=== PATIENT | female | born 1985 | race Caucasian/White ===

== ENCOUNTER → 2019-04-21 08:18 | Outpatient (CLI) | payer BC, SELFPAY ==
--- NOTE | 2019-04-21 08:19 | CA_ITS ---
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[employer]: Maki Lloyd CRT Ht: 5 ft 4 in Wt: 206lbs BSA: 1.98 BP: 130/79 mmHg Indications: Chest Pain, Palpitations, Fatigue, Peripheral Edema 2D Dimensions LVOT 1.86 cm (M/F) 1.5-2.5 M-Mode Dimensions RVDd 2.16 cm (0.9-2.6) LVDd 4.42 cm (3.5-5.7) LVDs 2.73 cm (3.5-5.7) IVSd 1.12 cm (0.6-1.1) PWd 0.79 cm (0.6-1.1) EF (Teich) 68.60% FS 38.20% EDV (Teich) 88.60 mL ESV (Teich) 27.80 mL LV Diastology E/A Ratio 1.30 Mitral Valve MV A Velocity 73.00 (40-130 cm/s) Left Ventricle Left atrium is normal size, left ventricle is normal size, there is no concentric left ventricular hypertrophy, visually estimated ejection fraction 55% with no regional wall motion abnormality, diastolic parameters are within normal range. Right Ventricle Right atrium and right ventricle are normal size and contractility. Aortic Valve Aortic valve is grossly normal, there is no aortic stenosis aortic insufficiency. Mitral Valve Mitral valve is grossly normal, there is mild mitral regurgitation. Tricuspid Valve Tricuspid valve is grossly normal, there is mild tricuspid regurgitation, calculated right ventricular systolic pressure is within normal range. Pulmonic Valve Pulmonic valve is poorly visualized. Great Vessels Aortic root is normal size. Pericardium No significant pericardial effusion noted. Conclusion 1. Normal left ventricular size, preserved left ventricular systolic function, visually estimated ejection fraction 55% with no regional wall motion abnormality, diastolic parameters are within normal range. 2. Mild mitral and tricuspid regurgitation. Calculated right ventricular systolic pressure is within normal range. 3. No significant pericardial effusion noted. Electronically signed by : Woody Galindo, 04/22/2019 13:31:57
== END ==
PROVIDERS: PCP Nurse Practitioner Family; Visit Provider Internal Medicine Cardiovascular Disease
DX: R00.2 Palpitations (principal); R07.9 Chest pain, unspecified; G47.30 Sleep apnea, unspecified
CPT/HCPCS: 93306; G0399

== ENCOUNTER → 2020-06-27 17:17 | Outpatient (CLI) | payer BC, SELFPAY ==
--- NOTE | 2020-06-27 17:25 | XR_ITS ---
PROCEDURE INFORMATION: Exam: XR Chest Exam date and time: 06/27/2020 5:25 PM Age: 35 years old Clinical indication: Shortness of breath; Patient HX: Patient positive for covid 07/27/2020---. SOA; Additional info: Covid outpatient TECHNIQUE: Imaging protocol: XR of the chest. Views: 1 view. COMPARISON: No relevant prior studies available. FINDINGS: Lungs: Unremarkable. No consolidation. Pleural spaces: Unremarkable. No pleural effusion. No pneumothorax. Heart/Mediastinum: Unremarkable. No cardiomegaly. Bones/joints: Unremarkable. IMPRESSION: No acute findings.
== END ==
PROVIDERS: PCP Nurse Practitioner Family; Visit Provider Nurse Practitioner Family
DX: U07.1 COVID-19 (principal)
CPT/HCPCS: 71045

== ENCOUNTER 2020-08-25 16:20 | Emergency (ER) | payer BC, SELFPAY ==
[2020-08-25 16:20] VITALS: BP 123/80; PULSE 81; RESP 20; TEMP 36.8; O2SAT 99; BMI 34.0
[2020-08-25 16:51] VITALS: BP 123/80; PULSE 81; RESP 20; TEMP 36.8; O2SAT 99
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
== END 2020-08-25 17:15 | disposition home or self-care (01) ==
PROVIDERS: Emergency Provider Nurse Practitioner; PCP Nurse Practitioner Family
DX: S00.83XA Contusion of other part of head, initial encounter (principal); V86.55XA Driver of 3- or 4- wheeled all-terrain vehicle (ATV) injured in nontraffic accident, initial encounter; W22.09XA Striking against other stationary object, initial encounter; Y92.89 Other specified places as the place of occurrence of the external cause
CPT/HCPCS: 99202; G0463

== ENCOUNTER → 2020-08-27 10:43 | Outpatient (CLI) | payer BC, SELFPAY ==
--- NOTE | 2020-08-27 10:47 | XR_ITS ---
PROCEDURE: XR FACIAL BONES MIN 3V CLINICAL INDICATION: UNSPECIFIED HEAD INJURY, SUBSEQUENT ENCOUNTER COMPARISON: No exams were available for comparison FINDINGS: No fracture or dislocation. No lytic or blastic change. There is normal mineralization. No sinus air-fluid level or significant mucosal thickening. Other findings:None. IMPRESSION: Negative facial bones. If symptoms persist, consider CT for more thorough evaluation. Dictated by: Brandin Maciel MD 08/27/2020 12:00 Brandin Maciel MD in [place] 08/27/2020 12:00
== END ==
PROVIDERS: PCP Nurse Practitioner Family; Visit Provider Nurse Practitioner Family
DX: S09.90XD Unspecified injury of head, subsequent encounter (principal)
CPT/HCPCS: 70150

== ENCOUNTER → 2021-03-29 09:54 | Outpatient (CLI) | payer BC, SELFPAY ==
--- NOTE | 2021-03-29 10:00 | MR_ITS ---
FINAL REPORT CLINICAL HISTORY: worsening headaches. migraine headache xyrs. floaters and nausea. symptoms xyrs. FINDINGS: Multi planar MR imaging was obtained through the brain without contrast. The midline structures appear intact. There is no evidence of Chiari malformation. On T2 and flair axial images the brain parenchyma is homogeneous. On diffusion-weighted images there is no evidence of restricted diffusion. The visualized paranasal sinuses demonstrate normal signal voids. The seventh and eighth nerve root complexes are intact. IMPRESSION: Essentially unremarkable nonenhanced brain MRI. Reviewed, Interpreted and Dictated by Timothy Omalley MD Transcribed by Chin Calderon Authenticated by Timothy Omalley MD on 03/29/2021 11:14:31 AM [facility]
--- NOTE | 2021-03-29 10:41 | XR_ITS ---
FINAL REPORT CLINICAL HISTORY: neck pain FINDINGS: CERVICAL SPINE SERIES Seven views demonstrate no fracture. The disc spaces are well preserved. There is no evidence of instability with flexion and extension maneuvers. IMPRESSION: No acute process. Reviewed, Interpreted and Dictated by Timothy Omalley MD Transcribed by Lia Schwartz Authenticated by Timothy Omalley MD on 03/29/2021 01:19:45 PM [facility]
[2021-03-29 11:16] LABS: Basophils # 0.1 K/mm3 (0-0.2); Basophils % 1.1 % (0.1-2.0); Eosinophils # 0.1 K/mm3 (0.0-0.4); Eosinophils % 1.1 % (0.1-12.0); Hematocrit 42.3 % (37.0-47.0); Lymphocytes # 2.3 K/mm3 (0.7-4.5); Lymphocytes % 27.3 % (10-50); Mean Corpuscular HGB Conc 33.2 g/dL (31.8-35.4); Mean Corpuscular Hemoglobin 28.3 pg (27.0-31.2); Mean Corpuscular Volume 85.2 fl (81-99); Mean Platelet Volume 7.6 fl (7.4-10.4); Monocytes # 0.5 K/mm3 (0.1-1.0); Monocytes % 6.3 % (1.7-9.3); Neutrophils # 5.5 K/mm3 (1.8-7.8); Neutrophils % 64.1 % (37.0-80.0); Platelet Count 396 K/mm3 (142-424); Red Blood Count 4.96 M/mm3 (4.20-5.40); Red Cell Distribution Width 14.1 % (11.5-17.5); White Blood Count 8.6 K/mm3 (4.8-10.8)
[2021-03-29 12:56] LABS: Folate 9.31 ng/mL; Vitamin B12 > 1000 pg/mL (239-931)
[2021-03-30 08:18] LABS: Homocyst(e)ine 5.7 umol/L (0.0-14.5)
[2021-04-04 19:08] LABS: Methylmalonic Acid 90 nmol/L (0-378)
== END ==
PROVIDERS: PCP Nurse Practitioner Family; Visit Provider Nurse Practitioner Family
DX: R51.9 Headache, unspecified (principal); G43.009 Migraine without aura, not intractable, without status migrainosus; M54.2 Cervicalgia; R00.2 Palpitations; R29.2 Abnormal reflex; E53.8 Deficiency of other specified B group vitamins; R40.0 Somnolence; G47.8 Other sleep disorders; R06.83 Snoring; Z68.36 Body mass index [BMI] 36.0-36.9, adult
CPT/HCPCS: 36415; 70551; 72052; 82131; 82607; 82746; 83090; 83516; 85025; 86340

== ENCOUNTER → 2021-05-14 21:12 | Outpatient (CLI) | payer BC, SELFPAY | PROVIDERS: PCP Nurse Practitioner Family; Visit Provider Nurse Practitioner Family | DX: G47.33 Obstructive sleep apnea (adult) (pediatric) (principal); R06.83 Snoring | CPT/HCPCS: 95810 ==

== ENCOUNTER 2021-05-31 17:11 | Emergency (ER) | payer BC, SELFPAY ==
[2021-05-31 17:16] VITALS: BP 132/81; PULSE 79; RESP 19; TEMP 36.7; O2SAT 99; BMI 34.0
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
[2021-05-31 18:15] LABS: Urine Pregnancy, HCG Qual. Negative (Negative)
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
[2021-05-31 20:16] VITALS: BP 124/74; PULSE 70; RESP 18; TEMP 36.7; O2SAT 99
== END 2021-05-31 20:18 | disposition home or self-care (01) ==
PROVIDERS: Emergency Provider Emergency Medicine; PCP Nurse Practitioner Family
DX: S06.0X0A Concussion without loss of consciousness, initial encounter (principal); W22.8XXA Striking against or struck by other objects, initial encounter; Y92.89 Other specified places as the place of occurrence of the external cause; K21.9 Gastro-esophageal reflux disease without esophagitis; F41.8 Other specified anxiety disorders
CPT/HCPCS: 70450; 81025; 99284

== ENCOUNTER → 2021-10-26 12:44 | Outpatient (CLI) | payer BC, SELFPAY ==
[2021-10-26 13:27] LABS: Erythrocyte Sedimentation Rate 12 mm/hr (0-20)
[2021-10-26 13:33] LABS: C-Reactive Protein 1.5 mg/L (0-4)
== END ==
PROVIDERS: PCP Nurse Practitioner Family; Visit Provider Nurse Practitioner Family
DX: R51.9 Headache, unspecified (principal)
CPT/HCPCS: 36415; 85651; 86140

== ENCOUNTER 2022-09-09 09:08 | Emergency (ER) | payer BC, SELFPAY ==
[2022-09-09 09:08] VITALS: BP 114/68; PULSE 83; RESP 18; TEMP 36.7; O2SAT 99; BMI 33.5
--- NOTE | 2022-09-09 09:23 | EXP.UTC ---
Discharge Plan Disposition Patient Disposition: Home, Self-Care Prescriptions Prescriptions: New ondansetron 4 mg tablet,disintegrating 4 mg PO Q6H PRN (Reason: nausea and vomiting) 5 Days Qty: 20 0RF No Action propranolol 20 mg tablet 10 mg PO ONCE fluoxetine 20 mg capsule 40 mg PO DAILY omeprazole 40 mg capsule,delayed release(DR/EC) 20 mg PO DAILY multivitamin Tablet 1 tab PO DAILY ferrous sulfate [Feosol] 325 mg (65 mg iron) tablet 325 mg PO DAILY mecobalamin (vitamin B12) 1,000 mcg tablet,disintegrating 1,000 mcg SUBLINGUAL DAILY Rx Instructions: place tablet under tongue and allow to dissolve for at least30 secs before swallowing Qulipta 60 mg tablet 60 mg PO DAILY Qty: 30 11RF Ubrelvy 100 mg tablet 100 mg PO ONCE PRN (Reason: migraine) Qty: 16 11RF Rx Instructions: Take 100 mg at onset of headache. May repeat after 2 hours if symptoms persist. Max dose 200 mg in 24 hours. Referrals Follow up/Referrals: Pablo Morgan MD [Staff Physician] - See instructions (next available appointment for EGD ) Yoli Davalos [Primary Care Provider] - See instructions Activity Restrictions/Add. Instructions Additional Instructions/Restrictions: Please take [id number] Pepcid and Maalox as needed for your symptoms. Return with any intolerance of keeping fluids or medications down. Please follow-up with Dr. Morgan to schedule an outpatient endoscopy and do lifestyle modifications as discussed for your probable diagnosis of GERD Clinical Impressions Clinical Impression: Acute epigastric pain, GERD (gastroesophageal reflux disease) Instructions Patient Instructions: DI for Acute Abdominal Pain Discharge ED Provider: Ya Steven [facility] General Chief complaint: Abdominal Pain Stated complaint: Stomache cramps Mode of Arrival: Ambulatory Source of Information: Patient Limitations: No Limitations Time Seen by Provider: 09/09/22 09:54 HEENT Symptoms (Recalled from RN notes): No Resp Symptoms (Recalled from RN notes): No Skin Symptoms (Recalled from RN notes): No MS Symptoms (Recalled from RN notes): No Functional Status (Recalled from RN notes): wnl History of Present Illness Provider Complaint: Patient complains of upper abdominal pain and nausea since yesterday. Related Data Home Medications Medication Instructions Recorded Confirmed omeprazole 40 mg capsule,delayed 20 mg PO DAILY 03/21/21 04/10/22 release ferrous sulfate 325 mg (65 mg 325 mg PO DAILY 05/02/21 04/10/22 iron) tablet (Feosol) mecobalamin (vitamin B12) 1,000 1,000 mcg sublingual DAILY 05/02/21 04/10/22 mcg disintegrating tablet,sublingual multivitamin 1 tab PO DAILY 05/02/21 04/10/22 propranolol 20 mg tablet 10 mg PO ONCE 01/09/22 04/10/22 fluoxetine 20 mg capsule 40 mg PO DAILY 04/10/22 04/10/22 Previous Rx's Medication Instructions Recorded atogepant 60 mg tablet (Qulipta) 60 mg PO DAILY #30 tabs 01/09/22 ubrogepant 100 mg tablet (Ubrelvy) 100 mg PO ONCE PRN migraine #16 03/05/22 tabs ondansetron 4 mg disintegrating 4 mg PO Q6H PRN nausea and 09/09/22 tablet vomiting 5 days #20 tabs Allergies Allergy/AdvReac Type Severity Reaction Status Date / Time Penicillins Allergy Verified 04/10/22 08:02 Worker's Comp Is this a Worker's Comp case?: No [facility] Disclaimer: The information contained in this section may have been updated after the patient was seen, as this information can be updated by other users. Social History Smoking Status: Never smoker alcohol intake: current substance use type: denies use current occupational status: employed Travel in the last 8 weeks: None household members: spouse and children housing: house ROS Obtained: Yes All systems reviewed & no additional complaints except as documented Constitutional Constitutional: Denies chills, Denies fe
--- NOTE | 2022-09-09 09:54 | HMH.EDGENADL ---
Discharge Plan Disposition Patient Disposition: Home, Self-Care Prescriptions Prescriptions: New ondansetron 4 mg tablet,disintegrating 4 mg PO Q6H PRN (Reason: nausea and vomiting) 5 Days Qty: 20 0RF No Action propranolol 20 mg tablet 10 mg PO ONCE fluoxetine 20 mg capsule 40 mg PO DAILY omeprazole 40 mg capsule,delayed release(DR/EC) 20 mg PO DAILY multivitamin Tablet 1 tab PO DAILY ferrous sulfate [Feosol] 325 mg (65 mg iron) tablet 325 mg PO DAILY mecobalamin (vitamin B12) 1,000 mcg tablet,disintegrating 1,000 mcg SUBLINGUAL DAILY Rx Instructions: place tablet under tongue and allow to dissolve for at least30 secs before swallowing Qulipta 60 mg tablet 60 mg PO DAILY Qty: 30 11RF Ubrelvy 100 mg tablet 100 mg PO ONCE PRN (Reason: migraine) Qty: 16 11RF Rx Instructions: Take 100 mg at onset of headache. May repeat after 2 hours if symptoms persist. Max dose 200 mg in 24 hours. Referrals Follow up/Referrals: Pablo Morgan MD [Staff Physician] - See instructions (next available appointment for EGD ) Yoli Davalos [Primary Care Provider] - See instructions Activity Restrictions/Add. Instructions Additional Instructions/Restrictions: Please take [id number] Pepcid and Maalox as needed for your symptoms. Return with any intolerance of keeping fluids or medications down. Please follow-up with Dr. Morgan to schedule an outpatient endoscopy and do lifestyle modifications as discussed for your probable diagnosis of GERD Clinical Impressions Clinical Impression: Acute epigastric pain, GERD (gastroesophageal reflux disease) Instructions Patient Instructions: DI for Acute Abdominal Pain Discharge ED Provider: Ya Steven General Adult HPI General Chief complaint: Abdominal Pain Stated complaint: Stomache cramps Time Seen by Provider: 09/09/22 09:54 Mode of Arrival: Ambulatory Source of Information: Patient Limitations: No Limitations Description of Symptoms (Recalled from ER Triage Doc. by RN): Patient complains of upper abdominal pain and nausea since yesterday. States that it feels like she is going to vomit or have diarrhea but she can't. History of Present Illness HPI narrative: Patient is a 37-year-old previously healthy female presenting with epigastric discomfort and nausea. This began in the middle of the night she had an urge that she needed to have diarrhea however she has not had any diarrhea and has not vomited but states that she still does not feel well. Pain is located epigastric without any radiation no right upper quadrant or other abdominal quadrant tenderness or pain from historical standpoint. No fevers or chills no chest pain shortness of breath or any other concerns. She went to the urgent treatment clinic and did not want to come the emergency department they sent her here regardless. Related Data Home Medications Medication Instructions Recorded Confirmed omeprazole 40 mg capsule,delayed 20 mg PO DAILY 03/21/21 04/10/22 release ferrous sulfate 325 mg (65 mg 325 mg PO DAILY 05/02/21 04/10/22 iron) tablet (Feosol) mecobalamin (vitamin B12) 1,000 1,000 mcg sublingual DAILY 05/02/21 04/10/22 mcg disintegrating tablet,sublingual multivitamin 1 tab PO DAILY 05/02/21 04/10/22 propranolol 20 mg tablet 10 mg PO ONCE 01/09/22 04/10/22 fluoxetine 20 mg capsule 40 mg PO DAILY 04/10/22 04/10/22 Previous Rx's Medication Instructions Recorded atogepant 60 mg tablet (Qulipta) 60 mg PO DAILY #30 tabs 01/09/22 ubrogepant 100 mg tablet (Ubrelvy) 100 mg PO ONCE PRN migraine #16 03/05/22 tabs ondansetron 4 mg disintegrating 4 mg PO Q6H PRN nausea and 09/09/22 tablet vomiting 5 days #20 tabs Allergies Allergy/AdvReac Type Severity Reaction Status Date / Time Penicillins Allergy Verified 04/10/22 08:02 [facility] Disclaimer: The information contained in this section may have been updated after the
[2022-09-09 10:00] VITALS: BP 131/75; PULSE 90; O2SAT 99
[2022-09-09 10:00] LABS: Microscopic, Urine URINE MICROSCOPIC (MICROSCOPIC)
[2022-09-09 10:11] VITALS: BP 135/63; PULSE 95; RESP 18; TEMP 36.7; O2SAT 98; BMI 33.3
[2022-09-09 10:30] VITALS: BP 112/66; PULSE 81; O2SAT 97
[2022-09-09 10:31] LABS: Urine Pregnancy, HCG Qual. Negative (Negative)
[2022-09-09 11:00] VITALS: BP 119/60; PULSE 80; O2SAT 97
--- NOTE | 2022-09-09 11:13 | PC.NURSE ---
Rounded on patient; pt reports she is ready to go. Dr. Steven notified and is room speaking within patient at this time. Call light within reach
[2022-09-09 11:20] VITALS: BP 119/60; PULSE 74; RESP 18; TEMP 36.7; O2SAT 98
[2022-09-09 12:21] LABS: Appearance,Urine CLEAR (Clear); Bilirubin,Urine Negative (Negative); Blood, Urine TRACE-I (Negative); Color,Urine YELLOW (Yellow); Glucose,Urine (UA) Negative (Negative); Ketones,Urine Negative (Negative); Leukocyte Esterase,Urine TRACE (Negative); Nitrate,Urine Negative (Negative); Protein,Urine Negative (Negative); Urobilinogen,Urine 0.2 EU/dl (0.2)
[2022-09-09 12:45] LABS: Bacteria,Urine Trace /lpf; RBC,Urine Occasional #/hpf (0-3)
== END 2022-09-09 11:20 | disposition home or self-care (01) ==
LOC: UTC 09:11 → ER 09:50
PROVIDERS: Emergency Provider Student in an Organized Health Care Education/Training Program; PCP Nurse Practitioner Family
DX: R10.13 Epigastric pain (principal); K21.9 Gastro-esophageal reflux disease without esophagitis; R11.0 Nausea
CPT/HCPCS: 81001; 81025; 99283; 99284

== ENCOUNTER 2022-09-27 15:46 | Emergency (ER) | payer BC, SELFPAY ==
[2022-09-27 15:47] VITALS: BP 145/91; PULSE 106; RESP 20; TEMP 36.6; O2SAT 99; BMI 33.5
--- NOTE | 2022-09-27 15:52 | XR_ITS ---
PROCEDURE INFORMATION: Exam: XR Right Foot Exam date and time: 09/27/2022 3:56 PM Age: 37 years old Clinical indication: Injury or trauma; Fall; Swelling (edema); Ankle; Right; Additional info: Twisted TECHNIQUE: Imaging protocol: Radiologic exam of the right foot. Views: 3 or more views. COMPARISON: CR XR ANKLE RT MIN 3V 09/27/2022 3:55 PM FINDINGS: Bones/joints: Normal. Soft tissues: Normal. IMPRESSION: No acute findings.
--- NOTE | 2022-09-27 15:52 | XR_ITS ---
PROCEDURE INFORMATION: Exam: XR Right Ankle Exam date and time: 09/27/2022 3:55 PM Age: 37 years old Clinical indication: Injury or trauma; Fall; Swelling (edema); Ankle; Right; Additional info: Twisted TECHNIQUE: Imaging protocol: Radiologic exam of the right ankle. Views: 3 or more views. COMPARISON: No relevant prior studies available. FINDINGS: Bones/joints: Spiral fracture lateral malleolus. No evidence of significant displacement. Widening of the syndesmosis. Focal radiodensity inferior to the medial malleolus. Possible avulsion fracture. Soft tissues: Soft tissue swelling most pronounced superficial to the lateral malleolus. IMPRESSION: 1. Spiral fracture lateral malleolus. No evidence of significant displacement. 2. Findings compatible with syndesmotic injury. 3. Focal radiodensity inferior to the medial malleolus. Possible avulsion fracture.
--- NOTE | 2022-09-27 15:59 | EXP.UTC ---
Discharge Plan Disposition Patient Disposition: Home, Self-Care Condition: Good Prescriptions Prescriptions: New ibuprofen [IBU] 800 mg tablet 800 mg PO Q8HP PRN (Reason: Moderate Pain) Qty: 30 0RF No Action propranolol 20 mg tablet 10 mg PO ONCE fluoxetine 20 mg capsule 40 mg PO DAILY omeprazole 40 mg capsule,delayed release(DR/EC) 20 mg PO DAILY multivitamin Tablet 1 tab PO DAILY ferrous sulfate [Feosol] 325 mg (65 mg iron) tablet 325 mg PO DAILY mecobalamin (vitamin B12) 1,000 mcg tablet,disintegrating 1,000 mcg SUBLINGUAL DAILY Rx Instructions: place tablet under tongue and allow to dissolve for at least30 secs before swallowing Qulipta 60 mg tablet 60 mg PO DAILY Qty: 30 11RF Ubrelvy 100 mg tablet 100 mg PO ONCE PRN (Reason: migraine) Qty: 16 11RF Rx Instructions: Take 100 mg at onset of headache. May repeat after 2 hours if symptoms persist. Max dose 200 mg in 24 hours. ondansetron 4 mg tablet,disintegrating 4 mg PO Q6H PRN (Reason: nausea and vomiting) 5 Days Qty: 20 0RF Referrals Follow up/Referrals: Jorge Luis Tello DO [Staff Physician] - See instructions Yoli Davalos [Primary Care Provider] - See instructions Activity Restrictions/Add. Instructions Additional Instructions/Restrictions: Rest the extremity, apply ice for 15 minutes as tolerated three or four times per day, Elevate the extremity as tolerated while you are resting. Take ibuprofen for pain. I sent in a prescription to your pharmacy. Follow up with Dr. Tello (orthopedics). I put in a referral but you need to call his office and schedule an appointment. His office phone number will be on this paperwork. Please call the office on Thursday morning. Follow up with your regular doctor. GO TO THE ER FOR ANY WORSENING SYMPTOMS Clinical Impressions Clinical Impression: Fracture of distal end of right fibula Instructions Patient Instructions: How to Use Crutches, How to Take Care of Your Splint, Fibula Shaft Fracture Discharge ED Provider: Julian Rodriguez [facility] HPI General Stated complaint: AO RT ankle twisted 09/27 1400 Time Seen by Provider: 09/27/22 15:59 History of Present Illness Provider Complaint: She states that she was walking in her yard when she stepped on uneven ground and twisted her right foot and ankle. Since then she has had right ankle and foot pain. Trying to walk or bear weight Related Data Home Medications Medication Instructions Recorded Confirmed omeprazole 40 mg capsule,delayed 20 mg PO DAILY 03/21/21 04/10/22 release ferrous sulfate 325 mg (65 mg 325 mg PO DAILY 05/02/21 04/10/22 iron) tablet (Feosol) mecobalamin (vitamin B12) 1,000 1,000 mcg sublingual DAILY 05/02/21 04/10/22 mcg disintegrating tablet,sublingual multivitamin 1 tab PO DAILY 05/02/21 04/10/22 propranolol 20 mg tablet 10 mg PO ONCE 01/09/22 04/10/22 fluoxetine 20 mg capsule 40 mg PO DAILY 04/10/22 04/10/22 Previous Rx's Medication Instructions Recorded atogepant 60 mg tablet (Qulipta) 60 mg PO DAILY #30 tabs 01/09/22 ubrogepant 100 mg tablet (Ubrelvy) 100 mg PO ONCE PRN migraine #16 03/05/22 tabs ondansetron 4 mg disintegrating 4 mg PO Q6H PRN nausea and 09/09/22 tablet vomiting 5 days #20 tabs ibuprofen 800 mg tablet (IBU) 800 mg PO Q8HP PRN Moderate Pain 09/27/22 #30 tabs Allergies Allergy/AdvReac Type Severity Reaction Status Date / Time Penicillins Allergy Verified 04/10/22 08:02 [facility] Disclaimer: The information contained in this section may have been updated after the patient was seen, as this information can be updated by other users. Social History Smoking Status: Never smoker alcohol intake: current substance use type: denies use current occupational status: employed Travel in the last 8 weeks: None household members: spouse and children housing: house
[2022-09-27 17:07] VITALS: BP 145/91; PULSE 106; RESP 20; TEMP 36.6; O2SAT 99
== END 2022-09-27 17:08 | disposition home or self-care (01) ==
PROVIDERS: Emergency Provider Nurse Practitioner Family; PCP Nurse Practitioner Family
DX: S82.444A Nondisplaced spiral fracture of shaft of right fibula, initial encounter for closed fracture (principal); X50.1XXA Overexertion from prolonged static or awkward postures, initial encounter
CPT/HCPCS: 73610; 73630; 99212; 99213; 99214; G0463

== ENCOUNTER 2022-12-19 09:00 | Outpatient (RCR) | payer BC, SELFPAY | END 2023-02-03 15:55 | disposition home or self-care (01) | LOC: PT 09:00 | PROVIDERS: PCP Nurse Practitioner Family; Visit Provider Orthopaedic Surgery | DX: S82.831A Other fracture of upper and lower end of right fibula, initial encounter for closed fracture (principal) | CPT/HCPCS: 97010; 97014; 97110; 97112; 97163; 97164; 97530; G0283 ==

== ENCOUNTER 2023-02-27 08:30 | Emergency (ER) | payer BC, SELFPAY ==
[2023-02-27 08:31] VITALS: BP 134/82; PULSE 86; RESP 18; TEMP 36.5; O2SAT 99; BMI 33.3
--- NOTE | 2023-02-27 08:34 | ED_ITS ---
Discharge Plan Disposition Patient Disposition: Home, Self-Care Condition: Good Prescriptions Prescriptions: No Action propranolol 20 mg tablet 10 mg PO ONCE fluoxetine 20 mg capsule 40 mg PO DAILY omeprazole 40 mg capsule,delayed release(DR/EC) 20 mg PO DAILY Qulipta 60 mg tablet 60 mg PO DAILY Qty: 30 11RF Referrals Follow up/Referrals: Yoli Davalos [Primary Care Provider] - See instructions Activity Restrictions/Add. Instructions Additional Instructions/Restrictions: It appears that your pain is likely due to fibroids. Please follow-up with your [facility] doctor. If you continue to be symptomatic you may need a procedure for your fibroids. Please take NSAIDs such as ibuprofen for your discomfort. Please return with any new or worsening symptoms. Clinical Impressions Clinical Impression: Fibroid uterus Qualifiers: Uterine leiomyoma location: unspecified location Qualified Code(s): D25.9 - Leiomyoma of uterus, unspecified Instructions Patient Instructions: Facts About Fibroids, Uterine Fibroids, DI for Uterine Fibroids Discharge ED Provider: Khai Meehan General Adult HPI General Chief complaint: Abdominal Pain Stated complaint: lower abdominal pain Time Seen by Provider: 02/27/23 08:32 History of Present Illness HPI narrative: The patient presents with a chief complaint of severe menstrual cramping and large blood clots during her period. The onset of symptoms began this morning, approximately 1.5 hours prior to the visit. She describes the course of the illness as initially severe with a slight improvement in pain, yet it remains significant. Her pain is suprapubic, and nonradiating. She has not had similar symptoms before. She reports that her symptoms were acute in onset. She has had associated nausea. No fevers, but does report chills. Related Data Home Medications Medication Instructions Recorded Confirmed omeprazole 40 mg capsule,delayed 20 mg PO DAILY 03/21/21 02/27/23 release propranolol 20 mg tablet 10 mg PO ONCE 01/09/22 02/27/23 fluoxetine 20 mg capsule 40 mg PO DAILY 04/10/22 02/27/23 Previous Rx's Medication Instructions Recorded atogepant 60 mg tablet (Qulipta) 60 mg PO DAILY #30 tabs 10/27/22 Allergies Allergy/AdvReac Type Severity Reaction Status Date / Time Penicillins Allergy Verified 10/27/22 13:29 [facility] Disclaimer: The information contained in this section may have been updated after the patient was seen, as this information can be updated by other users. Surgical History Status post right foot surgery Social History Smoking Status: Never smoker alcohol intake: current substance use type: denies use current occupational status: employed Travel in the last 8 weeks: None household members: spouse and children housing: house ROS Obtained: Yes Systems reviewed as appropriate & no additional complaints except as documented As per HPI Physical Exam General General appearance: alert and in no apparent distress Head Head exam: atraumatic and normocephalic Eye Eye exam: Present normal appearance Neck Neck exam: Present normal inspection Chest Chest inspection: Present normal inspection and symmetric chest wall rise Respiratory Respiratory exam: Present normal lung sounds bilaterally; Absent respiratory distress Cardiovascular Cardiovascular exam: Present regular rate and normal rhythm Abdominal Exam Abdominal exam: Present soft Abdominal tenderness: Present suprapubic Neurological Exam Neurological exam: Present alert and oriented X3 Psychiatric Psychiatric exam: Present normal affect and normal mood Skin Skin exam: Present warm and dry Medical Decision Making Medical Records Medical records reviewed: Yes I reviewed the patient's medical records. Skyler Inquiry Pt receiving controlled substance: No Vital Signs: 02/27/23 08:31 02/27/23 08:36 02/27/23 12:26 Temperature 97.7 F 97.7 F Temperature Source Oral Pulse Rate 90 82 Pulse Rate [Right] 86 Respiratory Rate 18 18 Blood Pressure 134/82 116/69 Blood Pressure [Right Arm] 134/82 Blood Pressure Mean 99 Blood Pressure Mean [Right Arm] 99 Blood Pressure Source Automatic Cuff Blood Pressure Source [Right Arm] Automatic Cuff 02 Sat by Pulse Oximetry 99 99 Oxygen Delivery Method Room Air Room Air Room Air Lab Data Lab Results 02/27/23 08:55: WBC 7.2, RBC 4.41, Hgb 12.4, Hct 35.4 L, MCV 80.2 L, MCH 28.1, MCHC 35.0, RDW 14.6, Plt Count 304, MPV 8.0, Neut % (Auto) 71.8, Lymph % (Auto) 21.2, [place] % (Auto) 4.4, Eos % (Auto) 1.8, Baso % (Auto) 0.8, Neut # (Auto) 5.2, Lymph # (Auto) 1.5, [place] # (Auto) 0.3, Eos # (Auto) 0.1, Baso # (Auto) 0.1, Sodium 139, Potassium 4.2, Chloride 106, Carbon Dioxide 25, Anion Gap 12.2, BUN 10, Creatinine 0.70, Estimated Creat Clear 158, Estimated GFR 94, Est GFR ( Amer) 114, Glucose 130 H, Calcium 8.3 L, Total Bilirubin 0.6, AST 46 H, ALT 33, Alkaline Phosphatase 49, Total Protein 6.8, Albumin 3.9, Globulin 2.9, Albumin/Globulin Ratio 1.3, Serum HCG, Qual Negative 02/27/23 08:55 02/27/23 08:55 Orders (Tests/Meds): ED MEDICATIONS Discontinued Medications Generic Name Dose Route Start Last Admin Trade Name Freq PRN Reason Stop Dose Admin Acetaminophen 1,000 mg 02/27/23 08:44 02/27/23 08:55 Acetaminophen 500mg Tab PO 02/27/23 08:45 1,000 mg ONCE ONE Administration Ibuprofen 600 mg 02/27/23 08:44 02/27/23 08:55 Ibuprofen 600 Mg Tablet PO 02/27/23 08:45 600 mg ONCE ONE Administration Ondansetron HCl 4 mg 02/27/23 08:44 02/27/23 08:55 Ondansetron 4mg Odt SL 02/27/23 08:45 4 mg ONCE ONE Administration ORDERS Category Date Time Status US transvaginal Stat Exams 02/27/23 08:44 Completed CBC w/Auto Diff [Complete Blood Count Auto Diff] Stat Lab 02/27/23 08:55 Completed CMP [Comprehensive Metabolic Panel] Stat Lab 02/27/23 08:55 Completed HCG Qualitative, Serum Stat Lab 02/27/23 08:55 Completed Medical Decision Narrative: Patient with history and exam per above presenting for evaluation of suprapubic abdominal pain, vaginal bleeding Diagnoses considered include ectopic , ovarian torsion, ruptured ovarian cyst, anemia, among others ED workup and treatment included: ED MEDICATIONS Discontinued Medications Generic Name Dose Route Start Last Admin Trade Name Freq PRN Reason Stop Dose Admin Acetaminophen 1,000 mg 02/27/23 08:44 02/27/23 08:55 Acetaminophen 500mg Tab PO 02/27/23 08:45 1,000 mg ONCE ONE Administration Ibuprofen 600 mg 02/27/23 08:44 02/27/23 08:55 Ibuprofen 600 Mg Tablet PO 02/27/23 08:45 600 mg ONCE ONE Administration Ondansetron HCl 4 mg 02/27/23 08:44 02/27/23 08:55 Ondansetron 4mg Odt SL 02/27/23 08:45 4 mg ONCE ONE Administration ORDERS Category Date Time Status US transvaginal Stat Exams 02/27/23 08:44 Completed CBC w/Auto Diff [Complete Blood Count Auto Diff] Stat Lab 02/27/23 08:55 Completed CMP [Comprehensive Metabolic Panel] Stat Lab 02/27/23 08:55 Completed HCG Qualitative, Serum Stat Lab 02/27/23 08:55 Completed Labs were independently interpreted by me, significant for test negative, hemoglobin within normal limits Imaging was independently visualized and interpreted by me, significant for findings consistent with uterine fibroid, no evidence of ovarian torsion, Symptoms at this time are thought to be most consistent with symptomatic uterine fibroid I discussed my clinical impression with patient and answered all questions. At this time, given reassuring workup and exam, I discussed that I have a low index of suspicion for any acute pathology necessitating inpatient management. Specific return precautions were given, with understanding and agreement. Patient will follow up with primary care provider as needed. Additionally will follow-up with [employer] Critical Care Critical Care Time Critical Care Time: No
[2023-02-27 08:36] VITALS: BP 134/82; PULSE 90; O2SAT 99
--- NOTE | 2023-02-27 08:39 | PC.NURSE ---
DR PEGUERO AT BEDSIDE
--- NOTE | 2023-02-27 08:44 | US_ITS ---
FINAL REPORT CLINICAL HISTORY: acute abdominal pain, N/V, eval for torsion FINDINGS: Transvaginal sonographic images of the pelvis were obtained. The uterus measures 8.9 x 6.2 x 7.0 cm. The endometrium measures 5 mm. There is a hypoechoic focus in the fundus of the uterus measuring 5.3 cm, probably related to a fundal fibroid. The right ovary measures 2.6 x 3.8 x 3.1 cm. The left ovary measures 3.7 x 1.9 x 2.1 cm. Small follicles are seen to both ovaries. Proper flow is identified bilaterally. IMPRESSION: Hypoechoic focus in the fundal of the uterus, probably related to a fundal fibroid. Reviewed, Interpreted and Dictated by Timothy Omalley MD Transcribed by Lia Schwartz Authenticated and . [facility]
--- OUTSIDE RECORDS SUMMARY | 2023-02-27 08:44 | XMS_ITS | Clinical Summary ---
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 Vitale is doing well. Her pain has improved. She still taking the aspirin for DVT prophylaxis. She is still nonweightbearing. We removed the splint today and will transition her to a boot. I encouraged her to come out of the boot to work on active range of motion of the ankle. I will see her back in 4 weeks. If x-rays look good at that time we will start weight-bearing and start physical therapy. - Last Documented On 10/17/2022 3:58PM ; [facility] Future Appointments Date Time Location Provi emiliano Injection Follow Up Visit 05/10/2027 10:30AM [facility] Rojas Pineda MD Assessments Includes: Assessments from this encounter Findings 2 weeks status post ORIF right lateral malleolus for displaced right bimalleolar equivalent ankle fracture - Last Documented On 10/17/2022 3:58PM ; [facility] Medical Equipment - Implanted Devices Includes: Current Devices No Medical Equipment Recorded Medications Includes: Medications discussed during this encounter and other current Medications Current Medications (continue as prescribed) Qulipta 60 MG Oral Tablet 05/06/2022 Provider: Diagnosis: FLUoxetine HCl 40 MG Oral Capsule 04/24/2022 Provide r: Yoli Davalos APRN Diagnosis: Omeprazole 20 MG Oral Capsule Delayed Release 04/24/19 Provider: Yoli Davalos APRN Diagnosis: Ubrelvy 100 MG Oral Tablet 04/10/2022 Provider: Diagnosis: Propranolol HCl 10 MG Oral Tablet 03/05/2022 Provide r: Yoli Davalos APRN Diagnosis: Vitamin B12 Unknown Oral Tablet 08/06/2017 Provider: Diagnosis: Ibuprofen 200MG Oral Capsule 05/19/2017 Provider: Diagnosis: Aleve 220MG Oral Tablet 05/19/2017 Provider: Diagnosis: Past Medications on file Aspirin EC Low Dose 81 MG Or al Tablet Delayed Release 09/30/2022 - 10/30/2022 Provider: Robert Barreto Diagnosis: 1 tablet po twice a day x 30 days AFTER surgery Medications Administered Includes: Administered Medications from this encounter No Administered Medications Recorded Results Includes: Results discussed during this encounter No Results Recorded For Specified Dates History of Present Illness Includes: History of Present Illness from this encounter FRANTZ Vitale is a 37 year old female. - Allergy list reviewed - Medication list reviewed Patent is here to follow up a right ankle ORIF from 10/01/2022. She reports minimal pain. The swelling has decreased. She denies any calf pain or tenderness. She has been in a splint since surgery. She is using a knee scooter. She has a puppy with her today. No longer taking pain medication. She is taking aspirin twice daily for DVT prophylaxis. Social History Description Last Updated Smoking status : Never smoker 10/15/2022 Procedures and Surgical History Includes: Procedures from this encounter Procedures Code Diagnosis Performing Provider Service Location Service Date X-Ray Ankle - 3 Views (Right) [address]22[address] Displ bimalleol fx r low leg, subs for clos fx w routn heal [facility] EP 10/15/2022 Surgical History Last Updated History of total right hip replacement 0 07/13/2017. Dr. 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 No fever, no chills, and no recent weight change. No night sweats. Head: No head symptoms. Neck: No neck pain, no neck stiffness, and no lump or swelling in the neck. Eyes: No eye symptoms. Otolaryngeal: No otolaryngeal symptoms. Cardiovascular: No cardiovascular symptoms. Pulmonary: No pulmonary symptoms. Gastrointestinal: No gastrointestinal symptoms. Genitourinary: No genitourinary symptoms. Endocrine: No endocrine symptoms. Hematologic: No easy bleeding and no tendency for easy bruising. Musculoskeletal: Musculoskeletal symptoms. Neurological: No neurological symptoms. Psychological: No psychological symptoms. Skin: No skin symptoms. Mental Status Includes: Mental Status from this encounter No Mental Status Recorded Functional Status Includes: Functional Status from this encounter No Functional Status Recorded Physical Exam Includes: Physical Exam from this encounter Allergies Includes: Active Allergies Substance Type Reaction Onset Date Resolved Date Statu s Penicillin G Benzathine Allergy Skin Devan hes / Eruption of skin, Hives / Urticaria 05/19/2017 Active Encounters Encounter Provider Location Date Check-In Time Check-Out Time Diagnosis Surgical Follow Up Visit [facility] 10/16/19 23 1:06PM 2:02PM Insurance Includes: Active Insurance Policies Plan Name Member ID Group # Subscriber Relationship Effect lori Dates 1 - Monette Blue Pref/access [id number] Antonella Vitale Self Clinical Notes Includes: Clinical Notes from this encounter * Progress note Date Encounter Last Documented by 10/15/2022 Surgical Follow Up Visit Last do cumented on 10/17/2022; 3:58 PM, Robert Vera MD; [facility] Chief Complaint Follow up right ankle History of Present Illness Antonella Vitale is a 37 year old female. - Allergy list reviewed - Medication list reviewed Patent is here to follow up a right ankle ORIF from 10/01/2022. She reports minimal pain. The swelling has decreased. She denies any calf pain or tenderness. She has been in a splint since surgery. She is using a knee scooter. She has a puppy with her today. No longer taking pain medication. She is taking aspirin twice daily for DVT prophylaxis. User Defined 8 05/09 Current Medication - Aleve 220MG Oral Tablet 220 MG as needed 0 days, 0 refills - Aspirin EC Low Dose 81 MG Oral Tablet Delayed Release Tablet, enteric coated 1 tablet po twice a day x 30 days AFTER surgery, 30 days, 0 refills - FLUoxetine HCl 40 MG Oral Capsule Capsule, conventional 90 days, 0 refills - Ibuprofen 200MG Oral Capsule 200 MG Capsule, conventional as needed 0 days, 0 refills - Omeprazole 20 MG Oral Capsule Delayed Release Capsule, delayed-release 90 days, 0 refills - Propranolol HCl 10 MG Oral Tablet 90 days, 0 refills - Qulipta 60 MG Oral Tablet 30 days, 0 refills - Ubrelvy 100 MG Oral Tablet 30 days, 0 refills - Vitamin B12 Unknown Oral Tablet Unknown 1 tablet po once a day 0 days, 0 refills Past Medical/Surgical History Other: Past medical history reviewed Surgical history reviewed Reported: Surgical / Procedural: Surgical / procedural history endometriosis 2009. Family history reviewed. Diagnoses: Migraine headache. Anxiety disorder due to general medical condition. Methicillin resistant staphylococcus aureus infection Surgical: - Total right hip replacement 07/13/2017. Dr. Pineda Social History Tobacco use: Former smoker. Smoking status: Never smoker. Alcohol: Alcohol use: 2 drinks or less per day. Drug Use: Never used drugs. Education: Completed associate's degree. 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 Motor: Preference for right-handedness. Allergies - Penicillin G Benzathine Reaction: , Hives / Urticaria No Metal Allergy. Family History Diabetes mellitus Dad and Mom Arthritis Dad, Maternal grandmother, paternal aunt all have hip replacements Review Of Systems Systemic: Not feeling tired. No fever, no chills, and no recent weight change. No night sweats. Head: No head symptoms. Neck: No neck pain, no neck stiffness, and no lump or swelling in the neck. Eyes: No eye symptoms. Otolaryngeal: No otolaryngeal symptoms. Cardiovascular: No cardiovascular symptoms. Pulmonary: No pulmonary symptoms. Gastrointestinal: No gastrointestinal symptoms. Genitourinary: No genitourinary symptoms. Endocrine: No endocrine symptoms. Hematologic: No easy bleeding and no tendency for easy bruising. Musculoskeletal: Musculoskeletal symptoms. Neurological: No neurological symptoms. Psychological: No psychological symptoms. Skin: No skin symptoms. Physical Findings General Appearance: Patient is awake, alert, and oriented and appears in no acute distress. Head: Atraumatic, normocephalic. Eyes: EOMs are intact. Lungs: Patient is in no acute respiratory distress. Neurologic: No acute neurological deficits or lateralizing findings. Peripheral Pulses: No sign of acute vascular compromise. Skin: Intact without evidence of wounds, lesions, ulcerations or abrasions. Musculoskeletal: On exam of the right ankle the splint has been removed. Incision is clean dry and intact to the right lateral distal fibula. No draining or erythema. Appropriately tender to palpation. Active ankle range of motion is from neutral to 30- of plantar flexion. She does have some tingling in the dorsal foot. Otherwise sensation intact to light touch. Foot is warm well perfused. Calf is soft, supple and nontender. User Defined 2 X-rays of the right ankle 3 or more views were performed [id number]. AP, mortise and lateral x-rays of the right ankle show plate and screw fixation of the right distal fibula with lag screw and neutralization plate. Hardware intact without failure. There is anatomic reduction of the fracture site on the mortise. Assessment 2 weeks status post ORIF right lateral malleolus for displaced right bimalleolar equivalent ankle fracture Plan Mrs. Vitale is doing well. Her pain has improved. She still taking the aspirin for DVT prophylaxis. She is still nonweightbearing. We removed the splint today and will transition her to a boot. I encouraged her to come out of the boot to work on active range of motion of the ankle. I will see her back in 4 weeks. If x-rays look good at that time we will start weight-bearing and start physical therapy. Practice Management Use of tobacco assessment performed. Counseling/Education - Body mass index - Patient screened for future fall risk - Patient screened for future fall risk: documentation of no falls in past year - Encouragement to exercise Bottom of Document [facility]/sw
--- OUTSIDE RECORDS SUMMARY | 2023-02-27 08:44 | XMS_ITS | Clinical Summary ---
Author Name Unknown Address [address] [facility] [address] [place] [address] Phone Organization [facility] Address [address] [facility] [facility] [address] [place] [address] Phone Care Team Providers Care Log Data Technician Name Role Phone Yoli Davalos APRN Primary Care Provider [phone] Robert Vera MD Unavailable [phone] Reason for Visit and Chief Complaint Standard Follow Up Visit Problems Includes: Problems addressed during this encounter and other active Problems All Visits Onset Date Resolved Date Provider Condition S tatus Unilateral primary osteoarthritis, right hip 05/21/2017 Rojas Pineda MD Active Last Documented On 05/21/2017 2:57PM ; [facility] Note: Unchanged Plan of Treatment She is now 6 weeks out from surgery. She is doing well with minimal pain. She has still been nonweightbearing. X-rays show good alignment and healing of the fracture. We can begin weight-bearing at this time. I want her to start from the boot and wean out of the boot over the next 2-3 weeks. We will set up physical therapy to work on gait, range of motion strengthening. I will see her back in 6 weeks with repeat right ankle x-rays. - Last Documented On 11/15/2022 7:49AM ; [facility] Future Appointments Date Time Location Provi emiliano Injection Follow Up Visit 05/10/2027 10:30AM [facility] Rojas Pineda MD Assessments Includes: Assessments from this encounter Findings 6 weeks status post ORIF right lateral malleolus for displaced right bimalleolar equivalent ankle fracture. - Last Documented On 11/15/2022 7:49AM ; [facility] Medical Equipment - Implanted Devices Includes: [...] Aleve 220MG Oral Tablet 05/19/2017 Provider: Diagnosis: Medications Administered Includes: Administered Medications from this encounter No Administered Medications Recorded Vital Signs Includes: Vital Signs from this encounter Vital Name 11/12/2022 11:26A Height (in) 64 Weight (lb) 305 Body Mass Index 52.4 Body Surface Area 2.3 Last Documented On: 11/12/2022 11:26AM ; [facility] Results Includes: Results discussed during this encounter No Results Recorded For Specified Dates History of Present Illness Includes: History of Present Illness from this encounter FRANTZ Vitale is a 37 year old female. - Allergy list reviewed - Medication list reviewed Patent is here to followup on a right ankle ORIF from 10/01/2022. She is 6 weeks out and has been nonweightbearing. She reports minimal pain. The swelling has decreased. She denies any calf pain or tenderness. She is using a knee scooter to get around. She has completed her aspirin for DVT prophylaxis. She is taking no pain medication. Social History No Social History Recorded - Smoking Status Unknown Procedures and Surgical History Includes: Procedures from this encounter Procedures Code Diagnosis Performing Provider Service Location Service Date X-Ray Ankle - 3 Views (Right) [address] Displ bimalleol fx r low leg, subs for clos fx w routn heal [facility] EP 11/12/2022 Medical History Includes: Medical History addressed during this encounter No Medical History Recorded Family History Includes: Family History addressed during this encounter No Family History Recorded Review of Systems Includes: Review of Systems from this encounter No Review of Systems Recorded Mental Status Includes: Mental Status from this [...] Location Date Check-In Time Check-Out Time Diagnosis Standard Follow Up Visit Robert [facility] EP 11/13/19 23 11:16AM 11:56AM Insurance Includes: Active Insurance Policies Plan Name Member ID Group # Subscriber Relationship Effect lori Dates 1 - [place] Pref/access [id number] Antonella Vitale Self Clinical Notes Includes: Clinical Notes from this encounter * Progress note Date Encounter Last Documented by 11/12/2022 Standard Follow Up Visit Last do cumented on 11/15/2022; 7:49 AM, Robert Vera MD; [facility] Chief Complaint Followup right ankle History of Present Illness Antonella Vitale is a 37 year old female. - Allergy list reviewed - Medication list reviewed Patent is here to followup on a right ankle ORIF from 10/01/2022. She is 6 weeks out and has been nonweightbearing. She reports minimal pain. The swelling has decreased. She denies any calf pain or tenderness. She is using a knee scooter to get around. She has completed her aspirin for DVT prophylaxis. She is taking no pain medication. User Defined 8 0/10 Physical Findings - Vitals taken 11/12/2022 11:26 am Height 64 in Weight 305 lbs Body Mass Index 52.4 kg/m2 Body Surface Area 2.3 m2 General Appearance: Patient is awake, alert, and oriented and appears in no acute distress. Head: Atraumatic, normocephalic. Eyes: EOMs are intact. Lungs: Patient is in no acute respiratory distress. Neurologic: No acute neurological deficits or lateralizing findings. Peripheral Pulses: No sign of acute vascular compromise. Skin: Intact without evidence of wounds, lesions, ulcerations or abrasions. Musculoskeletal: On exam of the right ankle the incision on the right lateral distal fibula is well healed. No draining or erythema. No tenderness to palpation. Active ankle range of motion is from 5- dorsiflexion to 30- of plantar flexion. She does have some tingling in the dorsal foot. Otherwise sensation intact to light touch. Foot is warm well perfused. Calf is soft, supple and nontender. User Defined 2 X-rays of the right ankle 3 or more views were performed [id number]. AP, mortise and lateral x-rays of the right ankle show plate and screw fixation of the right distal fibula with lag screw and neutralization plate. Hardware intact without failure. There is anatomic reduction of the fracture site on the mortise. Assessment 6 weeks status post ORIF right lateral malleolus for displaced right bimalleolar equivalent ankle fracture. Plan She is now 6 weeks out from surgery. She is doing well with minimal pain. She has still been nonweightbearing. X-rays show good alignment and healing of the fracture. We can begin weight-bearing at this time. I want her to start from the boot and wean out of the boot over the next 2-3 weeks. We will set up physical therapy to work on gait, range of motion strengthening. I will see her back in 6 weeks with repeat right ankle x-rays. Bottom of Document [facility]/t
--- OUTSIDE RECORDS SUMMARY | 2023-02-27 08:44 | XMS_ITS | Clinical Summary ---
Author Name Unknown Address [address] [facility] [address] [place] [address] Phone Organization [facility] Address [address] [facility] [address] [place] [address] Phone Care Team Providers Care Top Distribution Executive Name Role Phone Yoli Davalos APRN Primary Care Provider Jody AVALOS, Robert Palacio Unavailable Unavailable Reason for Visit and Chief Complaint Surgical Appointment Problems Includes: Problems addressed during this encounter and other active Problems All Visits Onset Date Resolved Date Provider Condition S tatus Unilateral primary osteoarthritis, right hip 05/21/2017 Rojas Pineda MD Active Last Documented On 05/21/2017 2:57PM ; [facility] Note: Unchanged Plan of Treatment Future Appointments Date Time Location Provi emiliano Injection Follow Up Visit 05/10/2027 10:30AM [facility] Rojas Pineda MD Assessments Includes: Assessments from this encounter No Assessments Recorded Medical Equipment - Implanted Devices Includes: Current [...] Oral Tablet 03/05/2022 Provide r: Yoli Davalos SOCIAL SERVICES ASSISTANT Diagnosis: Vitamin B12 Unknown Oral Tablet 08/06/2017 Provider: Diagnosis: Ibuprofen 200MG Oral Capsule 05/19/2017 Provider: Diagnosis: Aleve 220MG Oral Tablet 05/19/2017 Provider: Diagnosis: Medications Administered Includes: Administered Medications from this encounter No Administered Medications Recorded Results Includes: Results discussed during this encounter No Results Recorded For Specified Dates History of Present Illness Includes: History of Present Illness from this encounter No History of Present Illness Recorded Social History No Social History Recorded - Smoking Status Unknown Procedures and Surgical History Includes: Procedures from this encounter Procedures Code Diagnosis Performing Provider Service Location Service Date Op Tx Distal Fib Fx;w/wo Fix (Right) 06807 Displaced bimalleolar fracture of right lower leg, init Robert Mitchell/[facility] EP 10/02/2022 Medical History Includes: Medical History addressed during [...] Exam Includes: Physical Exam from this encounter No Physical Exam Recorded Allergies Includes: Active Allergies Substance Type Reaction Onset Date Resolved Date Statu s Penicillin G Benzathine Allergy Skin Devan hes / Eruption of skin, Hives / Urticaria 05/19/2017 Active Encounters Encounter Provider Location Date Check-In Time Check-Out Time Diagnosis Surgical Appointment Robert Mitchell/kathy torres EP 10/03/19 23 9:30AM 11:59PM Insurance Includes: Active Insurance Policies Plan Name Member ID Group # Subscriber Relationship Effect lori Dates 1 - [place] Pref/access [id number] Antonella Winifred Self Clinical Notes Includes: Clinical Notes from this encounter No Clinical Notes Recorded
--- OUTSIDE RECORDS SUMMARY | 2023-02-27 08:44 | XMS_ITS | Clinical Summary ---
Author Name Unknown Address [address] [facility] [facility] [address] [place] [address] Phone Organization [facility] Address [address] [facility] [address] [place] [address] Phone Care Team Providers Care House Designer Name Role Phone Yoli Davalos APRN Primary Care Provider [phone] Robert eVra MD Unavailable [phone] Reason for Visit and Chief Complaint Phone Conversation Problems Includes: Problems addressed during this encounter and other active Problems All Visits Onset Date Resolved Date Provider Condition S tatus Unilateral primary osteoarthritis, right hip 05/21/2017 Rojas Pineda MD Active Last Documented On 05/21/2017 2:57PM ; [facility] Note: Unchanged Plan of Treatment Future Appointments Date Time Location Provi emiliano Injection Follow Up Visit 05/10/2027 10:30AM [facility] Rojas Pineda MD Assessments Includes: [...] History of Present Illness from this encounter HPI I spoke to the patient this morning. She is postop day 1 from right ankle ORIF. She had a bimalleolar equivalent ankle fracture. She does have a splint in place. She states that it feels that the splint is taking and directly over the incision. I did place the splint on myself and is well padded. I think her pain is not adequately controlled. I will allow her to take 2 of her pain pills for the next several doses. She continued to elevate and ice the ankle. She can take ibuprofen in between her Percocet doses. She is taking aspirin 81 mg b.i.d. for DVT prophylaxis. Follow- up in 2 weeks Social History No Social History Recorded - Smoking Status Unknown Medical History Includes: Medical History addressed during [...] Location Date Check-In Time Check-Out Time Diagnosis Phone Conversation Robert Vera MD 3 1:34PM 11:59PM Insurance Includes: Active Insurance Policies Plan Name Member ID Group # Subscriber Relationship Effect lori Dates 1 - [place] Pref/access [id number] Antonella Winifred Anaya Clinical Notes Includes: Clinical Notes from this encounter * Progress note Date Encounter Last Documented by 10/03/2022 Phone Conversation Last document ed on 10/03/2022; 1:36 PM, Robert Vera MD; [facility] History of Present Illness I spoke to the patient this morning. She is postop day 1 from right ankle ORIF. She had a bimalleolar equivalent ankle fracture. She does have a splint in place. She states that it feels that the splint is taking and directly over the incision. I did place the splint on myself and is well padded. I think her pain is not adequately controlled. I will allow her to take 2 of her pain pills for the next several doses. She continued to elevate and ice the ankle. She can take ibuprofen in between her Percocet doses. She is taking aspirin 81 mg b.i.d. for DVT prophylaxis. Follow- up in 2 weeks
--- OUTSIDE RECORDS SUMMARY | 2023-02-27 08:44 | XMS_ITS ---
Author Name Unknown Address [address] [place] [address] Phone Organization [facility] Address [address] [place] [address] Phone Care Team Providers Care Product Test Engineer Name Role Phone Eduard Cheek APRN Primary Care Provider [phone] Robert Vera MD Unavailable [phone] Problems Includes: Active, inactive, and resolved Problems All Visits Onset Date Resolved Date Provider Condition S tatus Unilateral primary osteoarthritis, right hip 05/21/2017 Rojas Pineda MD Active Last Documented On 05/21/2017 2:57PM ; [facility] Note: Unchanged Plan of Treatment Future Appointments Date Time Location Provi emiliano Injection Follow Up Visit 05/10/2027 10:30AM [facility] Rojas Pineda MD Education and Decision Aids were provided during visit for: Discussed maintaining health y weight Last Documented On 3 10:44AM ; [facility] Pre-op reinforcement of the risks and benefits of the procedure , rehabilitation, and postoperative course were discussed Last Documented On 8 4:20PM ; [facility] Assessments Includes: Assessments for all patient encounters No Assessments Recorded Instructions Includes: Instructions for all patient encounters Education and Decision Aids were provided during visit for: Discussed maintaining health y weight Last Documented On 3 10:44AM ; [facility] Pre-op reinforcement of the risks and benefits of the procedure , rehabilitation, and postoperative course were discussed Last Documented On 8 4:20PM ; [facility] Medical Equipment - Implanted Devices Includes: Current and historical Devices No Medical Equipment Recorded Medications Includes: Current and historical Medications Current Medications (continue as prescribed) Qulipta 60 MG Oral Tablet 05/06/2022 Provider: Diagnosis: FLUoxetine HCl 40 MG Oral Capsule 04/24/2022 Provide r: Eduard Cheek APRN Diagnosis: Omeprazole 20 MG Oral Capsule Delayed Release 04/24/19 Provider: Eduard Cheek APRN Diagnosis: Ubrelvy 100 MG Oral Tablet 04/10/2022 Provider: Diagnosis: Propranolol HCl 10 MG Oral Tablet 03/05/2022 Provide r: Eduard Cheek APRN Diagnosis: Vitamin B12 Unknown Oral Tablet 08/06/2017 Provider: Diagnosis: Ibuprofen 200MG Oral Capsule 05/19/2017 Provider: Diagnosis: Aleve 220MG Oral Tablet 05/19/2017 Provider: Diagnosis: Past Medications on file Aspirin EC Low Dose 81 MG Or al Tablet Delayed Release 09/30/2022 - 10/30/2022 Provider: Robert Barreto Diagnosis: 1 tablet po twice a day x 30 days AFTER surgery FLUoxetine HCl 40MG Oral Capsule 07/29/2017 - 05/10/19 Provider: Diagnosis: Paxil 20MG Oral Tablet 05/19/2017 - 08/06/2017 Provide r: Diagnosis: take 1/2 per day Medications Administered Includes: Administered Medications in patient's chart No Administered Medications Recorded Vital Signs Includes: Vital Signs from 02/27/2022 through 02/27/2023 Vital Name 11/12/2022 11:26A 09/29/2022 11:30A 05/09 10:43A Height (in) 64 64 64 Weight (lb) 305 195 218.4 Body Mass Index 52.4 33.5 37.5 Body Surface Area 2.3 1.9 2 Last Documented On: 11/12/2022 11:26AM ; [facility] 09/29/2022 11:30AM ; [facility] 05/09/2022 10:43AM ; [facility] Results Includes: Results from 02/27/2022 through 02/27/2023 No Results Recorded For Specified Dates History of Present Illness History of Present Illness not supported for this document type No History of Present Illness Recorded Social History Description Last Updated Smoking status : Former smoker Procedures and Surgical History Includes: Procedures from 02/27/2022 through 02/27/2023 Procedures Code Diagnosis Performing Provider Service Location Service Date X-Ray Ankle - 3 Views (Right) 11304 Displ bimalleol fx r low leg, subs for clos fx w rout[facility] [place] Surgical History Last Updated History of total right hip replacement 0 07/13/2017. Dr. 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 09/29/2022 Family History Includes: Family History in patient's chart Description Last Updated Family history of arthritis Dad, Maternal grandmother, paternal aunt all have hip replacements 08/11/2017 Review of Systems Review of Systems not supported for this document type No Review of Systems Recorded Mental Status No Mental Status Recorded Functional Status No Functional Status Recorded Physical Exam Physical Exam not supported for this document type No Physical Exam Recorded Allergies Includes: Active, inactive, and resolved Allergies Substance Type Reaction Onset Date Resolved Date Statu s Penicillin G Benzathine Allergy Skin Devan hes / Eruption of skin, Hives / Urticaria 05/19/2017 Active Encounters Includes: Encounters from 02/27/2022 through 02/27/2023 Encounter Provider Location Date Check-In Time Check-Out Time Diagnosis Standard Follow Up Visit [facility] [place] 23 10:44AM 11:51AM [facility] 11:16AM 11:56AM [facility] 1:06PM 2:02PM Phone Conversation Robert Vera MD 10/04/19 23 09/29/2022 1:34PM 09/29/2022 11:59PM Surgical Appointment [facility] 10/03/1909/29/2022 9:30AM 09/29/2022 11:59PM Medication Robert Vera MD 10/01/1909/29/2022 8:02AM 09/29/2022 11:59PM Work In Established Pt [facility] [place] 11:05AM 12:51PM Estab Pt New Problem Ro[facility] 05/10/19 10:39AM 10:53AM Insurance Includes: Active Insurance Policies Plan Name Member ID Group # Subscriber Relationship Effect lori Dates 1 - [employer] Pref/access [id number] Antonella Vitale Self Clinical Notes Includes: Signed Clinical Notes starting from 02/10/2022 * Progress note Date Encounter Last Documented by 12/24/2022 Standard Follow Up Visit Last do cumented on 12/26/2022; 7:44 AM, Robert Vera MD; [facility] Chief Complaint Right ankle followup History of Present Illness Antonella Vitale is a 37 year old female. - Allergy list reviewed - Medication list reviewed Right ankle followup visit. She normally does not have any pain. Sometimes she has pain on the medial side of the ankle when she steps wrong. She feels she is unable to apply barely any weight on it for a few days. She is still doing physical therapy. The ankle swells at the end of the day. No numbness or tingling. User Defined 8 0 out of 10 Current Medication - Aleve 220MG Oral Tablet 220 MG as needed 0 days, 0 refills - FLUoxetine HCl 40 MG Oral Capsule 90 days, 0 refills - Ibuprofen 200MG Oral Capsule 200 MG as needed 0 days, 0 refills - Omeprazole 20 MG Oral Capsule Delayed Release 90 days, 0 refills - Propranolol HCl [...] 07/13/2017. Dr. Pineda Social History Tobacco use: Tobacco non-user. Smoking status: Former smoker. Alcohol: Alcohol use: 2 drinks or less per day. Drug Use: Never used drugs. Education: Completed associate's degree. 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 Motor: Preference for right-handedness. Allergies - Penicillin [...] bleeding and no tendency for easy bruising. Neurological: No neurological symptoms. Psychological: No psychological [...] abrasions. Musculoskeletal: On exam of the right ankle, the incision on the right lateral distal [...] ankle 3 or more views were performed 95455. AP, oblique, and lateral x-rays of the right ankle show plate and screw fixation of the distal fibula. Alignment is unchanged. Fracture site is not visible. There is a small avulsion fracture about the medial malleolus. This is also unchanged compared to prior x-rays. Assessment 3 months status post ORIF right lateral malleolus for displaced right bimalleolar equivalent ankle fracture. She is doing well overall. She is having some pain about the medial aspect of the ankle today. I think this is from some posterior tibial tendinitis. I discussed use of anti-inflammatory medication both orally and topically. Discussed use of ice. She will transition to a home exercise program. Plan At this point, she can follow up as needed. Discussed that she can continue improve for the first year after surgery. Practice Management Use of tobacco assessment performed. Counseling/Education - Body mass index not documented contraindicated Bottom of Document [facility] / MM * Progress note Date Encounter Last Documented by 11/12/2022 Standard Follow Up Visit Last do cumented on 11/15/2022; 7:49 AM, [facility]; [facility] Chief Complaint Followup right ankle History of [...] ankle 3 or more views were performed 61841. AP, mortise and lateral x-rays of the [...] right ankle x-rays. Bottom of Document [facility]/t * Progress note Date Encounter Last Documented by 10/15/2022 Surgical Follow Up Visit Last do cumented on 10/17/2022; 3:58 PM, Robert Vera MD; [facility] Chief Complaint Follow up right ankle History [...] drugs. Education: Completed associate's degree. 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 Motor: Preference for right-handedness. Allergies - Penicillin [...] ankle 3 or more views were performed 83611. AP, mortise and lateral x-rays of the [...] Encouragement to exercise Bottom of Document [facility]/sw * Progress note Date Encounter Last Documented by 10/03/2022 Phone Conversation Last document ed on 10/03/2022; 1:36 PM, Robert Vera MD; [facility] History of Present Illness I spoke to [...] DVT prophylaxis. Follow- up in 2 weeks * Progress note Date Encounter Last Documented by 09/29/2022 Work In Established Pt Last docu mented on 10/01/2022; 8:11 AM, Robert Vera MD; [facility] Chief Complaint Right ankle pain History of Present Illness Antonella Vitale is a 37 year old female. - Allergy list reviewed - Medication list reviewed Patient is here for a right ankle injury. She reports stepping incorrectly and twisting the ankle. She did fall. She had pain immediately, swelling and bruising. She went to [facility]. She was advised she had a fracture and would need to see an orthopaedist. She is non weight bearing and using crutches. She does have a history of a right total hip replacement by Dr. Pineda. User Defined 11/09 Current Medication - Aleve 220MG Oral Tablet 220 MG as needed 0 days, 0 refills - FLUoxetine HCl 40 MG Oral Capsule 90 days, 0 refills - Ibuprofen 200MG Oral Capsule 200 MG as needed 0 days, 0 refills - Omeprazole 20 MG Oral Capsule Delayed Release 90 days, 0 refills - Propranolol HCl [...] headache. 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 Methicillin resistant staphylococcus aureus infection Methicillin resistant staphylococcus aureus infection after child in [place] Surgical: - Total right hip replacement 07/13/2017. Dr. Pineda Social History Tobacco use: Former smoker. Smoking status: Former smoker. Alcohol: Alcohol use: 2 drinks or less per day. Drug Use: Never used drugs. Education: Completed associate's degree. 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 Motor: Preference for right-handedness. Allergies - Penicillin G Benzathine Reaction: , Hives / Urticaria No Metal Allergy. Family History Diabetes mellitus Dad and Mom Arthritis Dad, Maternal grandmother, paternal aunt all have hip replacements Review Of Systems Systemic: No symptoms and not feeling tired. No fever, no chills, and no recent weight change. No night sweats. Head: Headache. Neck: No neck pain, no neck stiffness, and no lump or swelling in the neck. Eyes: No eye symptoms. Otolaryngeal: Nasal passage blockage (stuffiness). Cardiovascular: No cardiovascular symptoms. Pulmonary: No pulmonary symptoms. Gastrointestinal: Heartburn. Genitourinary: No genitourinary symptoms. Endocrine: No endocrine symptoms. Hematologic: No easy bleeding and no tendency for easy bruising. Musculoskeletal: Musculoskeletal symptoms. Neurological: No neurological symptoms. Psychological: Anxiety. Skin: No skin symptoms. Physical Findings - Vitals taken 09/29/2022 11:30 am Height 64 in Weight 195 lbs Body Mass Index 33.5 kg/m2 Body Surface Area 1.9 m2 General Appearance: Patient is awake, alert, and oriented and appears in no acute distress. Head: Atraumatic, normocephalic. Eyes: EOMs are intact. Lungs: Patient is in no acute respiratory distress. Neurologic: No acute neurological deficits or lateralizing findings. Peripheral Pulses: No sign of acute vascular compromise. Skin: No sign of acute infection. Musculoskeletal: Right Foot & Ankle: Patient is unable to bear weight on the right foot & ankle. There is moderate edema and ecchymosis about the medial and lateral aspects of the right ankle. Skin intact. There is tenderness to palpation about the distal fibula and medial ankle over the deltoid ligaments. She does have limited active plantar flexion and dorsiflexion of the ankle due to pain. Sensation intact to light touch throughout the superficial peroneal, deep peroneal and tibial nerves. Foot is warm and well perfused with palpable DP and PT pulses. User Defined 2 Radiologic exam, stress view(s) by physician, any joint was performed 53913. X-rays of the right ankle 3 or more views were performed 81653. Findings: AP, lateral and mortise x-rays of the right ankle show a displaced right Lynch B distal fibular fracture. Stress x-rays show widening of the medial clear space greater than 5 mm. There is a small avulsion fracture off of the medial malleolus. Assessment Right, closed bimalleolar equivalent ankle fracture Plan I had a long discussion with the patient regarding her fracture. Stress x-rays do show opening of the medial clear space. This is an unstable injury. She is indicated for open reduction internal fixation of the right ankle. I discussed the surgical technique in detail as well as postoperative recovery protocol. Will schedule her for surgery for October 02, 2022 at [facility]. She will be nonweightbearing for 6 weeks postoperatively. She will receive DVT prophylaxis in the form of aspirin 81 mg b.i.d. for 30 days. She will be placed into a splint postop early and then transition to a boot at [address] her in a boot today for immobilization. I recommended elevation and icing this week until the day of surgery. The patient has been prescribed a prefabricated, [id number] pneumatic walker boot. The patient is not ambulatory, but is mobile with aid and progressing to toe- touch weight-bearing. They will graduate to full weight bearing as tolerated. The patient does exhibit weakness and/or instability of their lower extremity which requires stabilization from this rigid orthosis to improve function and protect the injury site. Verbal and written instructions for the use and application of this item were given. Patient was instructed that should the boot result in increased pain, decreased sensation, or an overall worsening of their medical condition, to please contact our office immediately. Practice Management Use of tobacco assessment performed. Counseling/Education - Body mass index - Patient screened for future fall risk - Patient screened for future fall risk: documentation of one fall without injury in past year - Encouragement to exercise Bottom of Document cc: EDUARD CHEEK [employer] - FAX: [phone] [facility]/ The operative procedure, alternatives, and risks were discussed in detail with the patient. The risks include but are not limited to: Infection, vessel injury, nerve injury, DVT, pulmonary embolism, hardware failure, need for revision surgery, loss of motion, continued pain. Despite these risks, the patient would like to proceed. All questions have been answered and no guarantees have been made. Time spent: 45 minutes was spent with the patient with more than 50% spent on counseling and coordination of care. I discussed with the patient their diagnosis in detail and answered all of their questions. Patient verbalized understanding of the plan as it has been described above and is in agreement. [facility]/t * Progress note Date Encounter Last Documented by 05/09/2022 Estab Pt New Problem Last docume nted on 05/09/2022; 11:23 AM, Rojas Pineda MD; [facility] Chief Complaint Right hip pain. History of Present Illness Antonella Vitale is a 37 year old female. - Allergy list reviewed - Medication list reviewed Mrs. Vitale is 5 years out from right hip replacement. She is pleased with her progress. Continues to increase her activity. However, she started to have some mid back pain. She recently saw her primary care provider who suggested she come back to make sure there is nothing wrong with her hip. She says it started about a month ago. User Defined 8 0 Current Medication - Aleve 220MG Oral Tablet 220 MG as needed 0 days, 0 refills - FLUoxetine HCl 40 MG Oral Capsule 90 days, 0 refills - Ibuprofen 200MG Oral Capsule 200 MG as needed 0 days, 0 refills - Omeprazole 20 MG Oral Capsule Delayed Release 90 days, 0 refills - Propranolol HCl [...] history endometriosis 2009. Family history reviewed. Diagnoses: Anxiety disorder due to general medical condition. Methicillin resistant staphylococcus aureus infection after child in [place] Surgical: - Total right hip replacement 07/13/2017. Dr. Pineda Social History Tobacco use: Tobacco non-user. Smoking status: Former smoker Quit 2012. Alcohol: Not using alcohol. 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 Motor: Preference for right-handedness. Allergies - Penicillin [...] bleeding and no tendency for easy bruising. Neurological: No neurological symptoms. Psychological: No psychological symptoms. Skin: No skin symptoms. Physical Findings - Vitals taken 05/09/2022 10:43 am Height 64 in Weight 218 lbs 6.4 oz Body Mass Index 37.5 kg/m2 Body Surface Area 2 m2 In general patient is a healthy-appearing, pleasant 37-year-old female, oriented to place and time. GAIT - Walks without a limp, no assistive device. SKIN - No signs of infection, no erythema, no edema. RIGHT HIP - Hip examination reveals no pain with log-rolling, deep hip flexion, internal or external rotation, flexion, abduction, external rotation (MIMA) or flexion, adduction, internal rotation (FADIR). Full range of motion with internal and external rotation without pain. Negative Stinchfield exam. Hip strength 5/5 in flexion and abduction. LEFT HIP - Hip examination reveals no pain with log-rolling, deep hip flexion, internal or external rotation, flexion, abduction, external rotation (MIMA) or flexion, adduction, internal rotation (FADIR). Full range of motion with internal and external rotation without pain. Negative Stinchfield exam. Hip strength 5/5 in flexion and abduction. BACK - There is no pain with forward flexion. There is no pain with back extension. There is no pain with lateral rotation left or right. There is no pain with straight leg raise supine or seated. No step-offs palpated. Deep tendon reflexes are intact and equal in bilateral lower extremities. There are no signs of hyperreflexia. Sensation was grossly intact and equal in bilateral lower extremities. Some pain with palpation in the thoracic region on the right side. Counseling/Education - Body mass index - Encouragement to exercise - Discussed maintaining healthy weight Plan I am pleased with her progress. She may increase her activity as tolerated. I will see her back in 5 years for 10 year followup. Repeat x-rays right hip at that time. I believe she is likely having some thoracic muscle spasming. We will get her started on a therapy program. I will see her back should this not help. Practice Management Use of tobacco assessment performed. User Defined 2 X-rays of the right hip, 2-3 Views were performed 42787. FINDINGS: AP pelvis and lateral radiographs of the right hip were taken. AP pelvis shows implant intact, no signs of loosening, no osteolysis, no signs of subsidence. Lateral shows implant intact, no loosening or subsidence. Bottom of Document cc: EDUARD CHEEK APRN (FAX: [phone]) DENISE/rupert
--- OUTSIDE RECORDS SUMMARY | 2023-02-27 08:44 | XMS_ITS | Clinical Summary ---
Author Name Unknown Address [address] [facility] [facility] [address] [place] [address] Phone Organization [facility] Address [address] [facility] [address] [place] [address] Phone Care Team Providers Care Production Designer Name Role Phone Yoli Davalos APRN Primary Care Provider [phone] Robert Vera MD Unavailable [phone] Reason for Visit and Chief Complaint Standard Follow Up Visit Problems Includes: Problems addressed during this encounter and other active Problems All Visits Onset Date Resolved Date Provider Condition S tatus Unilateral primary osteoarthritis, right hip 05/21/2017 Rojas Pineda MD Active Last Documented On 05/21/2017 2:57PM ; [facility], [facility] Note: Unchanged Plan of Treatment At this point, she can follow up as needed. Discussed that she can continue improve for the first year after surgery. - Last Documented On 12/26/2022 7:44AM ; [facility], [facility] Future Appointments Date Time Location Provi emiliano Injection Follow Up Visit 05/10/2027 10:30AM [facility] Rojas Pineda MD Assessments Includes: Assessments from this encounter Findings 3 months status post ORIF right lateral malleolus for displaced right bimalleolar equivalent ankle fracture. - Last Documented On 12/26/2022 7:44AM ; [facility], [facility] She is doing well overall. She is having some pain about the medial aspect of the ankle today. I think this is from some posterior tibial tendinitis. I discussed use of anti-inflammatory medication both orally and topically. Discussed use of ice. She will transition to a home exercise program. - Last Documented On 12/26/2022 7:44AM ; [facility], [facility] Medical Equipment - Implanted Devices Includes: Current Devices No Medical Equipment Recorded Medications Includes: Medications discussed during this encounter and other current Medications Current Medications (continue as prescribed) Qulipta 60 MG Oral Tablet 05/06/2022 Provider: Diagnosis: FLUoxetine HCl 40 MG Oral Capsule 04/24/2022 Provide r: Yoli Davalos APRN Diagnosis: Omeprazole 20 MG Oral Capsule Delayed Release 04/24/19 Provider: Yoli Davalso APRN Diagnosis: Ubrelvy 100 MG Oral Tablet [...] of the day. No numbness or tingling. Social History Description Last Updated Smoking status : Former smoker 3 Procedures and Surgical History Includes: Procedures from this encounter Procedures Code Diagnosis Performing Provider Service Location Service Date X-Ray Ankle - 3 Views (Right) [address] Displ bimalleol fx r low leg, subs for clos fx w routn heal [facility] EP 12/24/2022 Surgical History Last Updated History of total right hip replacement 0 07/13/2017. Dr. Pineda 08/06/2017 Medical History Includes: Medical History addressed [...] Time Diagnosis Standard Follow Up Visit Robert Vera MD [facility] 12/25/19 23 10:44AM 11:51AM Insurance Includes: Active Insurance Policies Plan Name Member ID Group # Subscriber Relationship Effect lori Dates 1 - [place] [employer] Pref/access [id number] Antonella Vitale Self Clinical Notes Includes: Clinical Notes from this encounter * Progress note Date Encounter Last Documented by 12/24/2022 Standard Follow Up Visit Last do cumented on 12/26/2022; 7:44 AM, Robert Vera MD; [facility], [facility] Chief Complaint Right ankle followup History of [...] drugs. Education: Completed associate's degree. 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 Motor: Preference for right-handedness. Allergies - Penicillin [...] ankle 3 or more views were performed 97327. AP, oblique, and lateral x-rays of the [...]
--- OUTSIDE RECORDS SUMMARY | 2023-02-27 08:44 | XMS_ITS ---
Care Plan - [facility], [facility] Created on: February 27, 2023 Antonella Vitale : 1985 Sex: Female Author Name Unknown Address [address] [address] [address] [place] [address] Phone Organization [facility], [facility] Address [address] [address] [address] [place] [address] Phone Care Team Providers Care Senior Portfolio Manager Name Role Phone Yoli Davalos APRN Primary Care Provider [phone] Robert Vera MD Unavailable [phone]
[2023-02-27] MEDS: ONDANSETRON 4MG ODT 4 MG SL (08:55)
[2023-02-27] MEDS: IBUPROFEN 600 MG TABLET PO (08:55)
[2023-02-27] MEDS: ACETAMINOPHEN 500MG TAB 1000 MG PO (08:55)
--- NOTE | 2023-02-27 08:59 | PC.NURSE ---
RADIOLOGY NOTIFIED OF US
[2023-02-27 09:09] LABS: Chloride 106 mmol/L (98-107); Potassium 4.2 mmoL/L (3.5-5.1); Sodium 139 mmol/L (136-145)
[2023-02-27 09:11] LABS: Blood Urea Nitrogen 10 mg/dl (7-17); Creatinine Clearance Estimated 158 mL/min (50-200); Estimated Glomerular Filt Rate 94 ml/min (>60); GFR (African American) 114 ML/MIN (>60)
[2023-02-27 09:12] LABS: Alanine Aminotransferase 33 U/L (12-78); Albumin Level 3.9 g/dl (3.5-5.0); Albumin/Globulin Ratio 1.3 (1.1-1.8); Alkaline Phosphatase 49 U/L (38-126); Anion Gap 12.2 mEq/L (5-15); Aspartate Amino Transferase 46 U/L (14-36); Bilirubin,Total 0.6 mg/dl (0.2-1.3); Calcium 8.3 mg/dl (8.4-10.2); Carbon Dioxide 25 mmol/L (22.0-30.0); Globulin 2.9 g/dL (1.3-3.2); Glucose 130 mg/dl (74-100); Total Protein,Serum 6.8 g/dl (6.3-8.2)
[2023-02-27 09:23] LABS: Basophils # 0.1 K/mm3 (0-0.2); Basophils % 0.8 % (0.1-2.0); Eosinophils # 0.1 K/mm3 (0.0-0.4); Eosinophils % 1.8 % (0.1-12.0); Hematocrit 35.4 % (37.0-47.0); Hemoglobin 12.4 g/dL (12.2-16.2); Lymphocytes # 1.5 K/mm3 (0.7-4.5); Lymphocytes % 21.2 % (10-50); Mean Corpuscular Hemoglobin 28.1 pg (27.0-31.2); Mean Corpuscular Volume 80.2 fl (81-99); Monocytes # 0.3 K/mm3 (0.1-1.0); Monocytes % 4.4 % (1.7-9.3); Neutrophils # 5.2 K/mm3 (1.8-7.8); Neutrophils % 71.8 % (37.0-80.0); Platelet Count 304 K/mm3 (142-424); Red Blood Count 4.41 M/mm3 (4.20-5.40); Red Cell Distribution Width 14.6 % (11.5-17.5); White Blood Count 7.2 K/mm3 (4.8-10.8)
--- NOTE | 2023-02-27 09:23 | INFXCTL.NOTE ---
PT TO US
[2023-02-27 09:42] LABS: HCG Qualitative, Serum Negative (Negative)
--- NOTE | 2023-02-27 09:56 | PC.NURSE ---
RETURNED FROM [facility]
[2023-02-27 12:26] VITALS: BP 116/69; PULSE 82; RESP 18; TEMP 36.5; O2SAT 99
== END 2023-02-27 12:28 | disposition home or self-care (01) ==
PROVIDERS: Emergency Provider Emergency Medicine; PCP Nurse Practitioner Family
DX: D25.9 Leiomyoma of uterus, unspecified (principal); R10.30 Lower abdominal pain, unspecified
CPT/HCPCS: 76830; 80053; 84703; 85025; 99285